=== PATIENT | male | born 1990 | race African-American/Black ===

== ENCOUNTER 2022-05-05 23:28 | Emergency (ER) | payer OTHER ==
[2022-05-05 23:38] VITALS: BP 118/66; PULSE 90; TEMP 98.5; BMI 24.3
[2022-05-06] MEDS ORDERED: ACETAMINOPHEN 500 MG TABLET (FP) PO ONE (01:07)
[2022-05-06] MEDS ORDERED: ACETAMINOPHEN 325 MG TABLET (FP) ONE (01:11)
== END 2022-05-06 01:28 | disposition home or self-care (01) ==
LOC: JER 23:28 → JERFT 23:28 → JER 05-06 01:28
DX: S09.90XA Unspecified injury of head, initial encounter (principal); W55.12XA Struck by horse, initial encounter
CPT/HCPCS: 99283-25